=== PATIENT | female | born 1975 | race Hispanic/Latino ===

== ENCOUNTER 2017-12-01 14:58 | Emergency (ER) | payer BC ==
[~2017-12-01] VITALS: Ht 157.5 cm; Wt 86.6 kg
[~2017-12-01 14:58] MED LIST: NEXIUM20 MG PO
[2017-12-01] MEDS ORDERED: TRAMADOL HCL 50 MG TAB PO ONE (15:15)
--- NOTE | 2017-12-01 15:48 | Diagnostic Imaging Report ---
EXAM: KNEE RIGHT THREE VIEWS DATE: 12/01/2017 3:11 PM INDICATION: \S\r/o fx effusion etc \[id number] \[id number] COMPARISON: None FINDINGS: No fracture, subluxation, degenerative change, or significant joint effusion present. IMPRESSION: No acute osseous findings. Signed by: Dr. Federico Vargas MD on 12/01/2017 3:44 PM
== END 2017-12-01 16:22 | disposition home or self-care (01) ==
LOC: ER 14:58
DX: M25.561 Pain in right knee (principal); S83.91XA Sprain of unspecified site of right knee, initial encounter; R26.2 Difficulty in walking, not elsewhere classified; K21.9 Gastro-esophageal reflux disease without esophagitis
CPT/HCPCS: 99282

== ENCOUNTER → 2017-12-28 | Outpatient (CLI) | payer BC ==
--- NOTE | 2017-12-28 10:40 | Diagnostic Imaging Report ---
Right knee MRI without contrast. History: Knee pain. Decreased range of motion. Pain not responding to conservative management Comparison: Radiograph 12/01/2017. Technique: Multiplanar multi-sequence MRI of the knee without contrast. Findings: Medial compartment: No meniscal tear, cartilage abnormality, or MCL tear. Lateral compartment: No meniscal tear or cartilage abnormality. The LCL complex is normal. Intercondylar notch: The ACL and PCL are intact. Patellofemoral compartment: No chondromalacia or patellar dislocation. Extensor mechanism: The quadriceps and patellar tendons are normal. Other findings: There is a joint effusion and synovitis. There is no acute fracture, subluxation or avascular necrosis. Tiny Martinez's cyst IMPRESSION: No meniscal tear, collateral ligament tear or cruciate ligament tear. Small joint effusion and mild synovitis. Tiny Martinez's cyst. Signed by: Dr. Richard James M.D. on 12/28/2017 10:37 AM
== END ==
LOC: MRI 09:05
PROVIDERS: ATTEND Internal Medicine
DX: M25.561 Pain in right knee (principal)

== ENCOUNTER 2018-03-14 13:45 | Emergency (ER) | payer BC ==
[~2018-03-14] VITALS: Ht 157.5 cm; Wt 86.6 kg
== END 2018-03-14 14:00 | disposition home or self-care (01) ==
LOC: FSED 13:45
DX: M25.562 Pain in left knee (principal); I80.02 Phlebitis and thrombophlebitis of superficial vessels of left lower extremity
CPT/HCPCS: 99283

== ENCOUNTER 2018-09-29 11:17 | Emergency (ER) | payer BC ==
[~2018-09-29] VITALS: Ht 157.5 cm; Wt 86.6 kg
[2018-09-29] MEDS ORDERED: ONDANSETRON HCL 4 MG ORAL DISINTEGRATING TAB PO ONE (12:00)
[2018-09-29] MEDS ORDERED: SODIUM CHLORIDE 0.9% 1000 ML BAG IV ONE (12:00)
[2018-09-29] MEDS ORDERED: MORPHINE SULFATE 5 MG/ML VIAL IV STA (12:27)
[2018-09-29] MEDS ORDERED: IOPAMIDOL 300MG/ML 100 ML INFUS..BTL IV ONE (12:45)
--- NOTE | 2018-09-29 14:04 | Diagnostic Imaging Report ---
EXAM: CT Abdomen and Pelvis WITH contrast INDICATION: Upper abdominal pain radiating to the back. COMPARISON: None. TECHNIQUE: Abdomen and pelvis were scanned utilizing a multidetector helical scanner from the lung base to the pubic symphysis after administration of IV contrast. Coronal and sagittal reformations were obtained. Routine protocol was performed. Scan was performed when during portal venous phase. IV CONTRAST: 100 cc of Isovue-370. ORAL CONTRAST: None COMPLICATIONS: None RADIATION DOSE: Total DLP: 771 mGy*cm Dose modulation, iterative reconstruction, and/or weight based adjustment of the mA/kV was utilized to reduce the radiation dose to as low as reasonably achievable. FINDINGS: LINES and TUBES: None. LOWER THORAX: There is a 3 mm left lower lobe solid pulmonary nodule on series 2, image 7. Scattered coronary atherosclerosis. HEPATOBILIARY: No evidence of focal lesion. No biliary ductal dilation. GALLBLADDER: No radio-opaque stones or sludge. No wall thickening. SPLEEN: No splenomegaly. PANCREAS: No focal masses or ductal dilatation. ADRENALS: No adrenal nodules KIDNEYS/URETERS: Kidneys enhance symmetrically. No evidence of hydronephrosis, solid mass, or stone. GI TRACT: No evidence of wall thickening or distension. Appendix is normal. Small hiatal hernia. PELVIC ORGANS/BLADDER: The bladder is partially decompressed. The uterus and bilateral adnexa are unremarkable. LYMPH NODES: No lymphadenopathy. VESSELS: Unremarkable. PERITONEUM / RETROPERITONEUM: No free air or fluid. BONES AND SOFT TISSUES: Unremarkable. CONCLUSION: No acute CT findings in the abdomen or pelvis. Scattered coronary atherosclerosis. A 3 mm left lower lobe solid nodule, likely benign in a low risk patient. If there is a history of smoking or other risk factor for malignancy, an optional follow-up chest CT may be considered in 12 months. Small hiatal hernia. Signed by: Dr. Seble Ruby MD on 09/29/2018 2:00 PM
== END 2018-09-29 15:46 | disposition home or self-care (01) ==
LOC: FSED 11:17
DX: R10.11 Right upper quadrant pain (principal); R10.12 Left upper quadrant pain; R11.2 Nausea with vomiting, unspecified; R19.7 Diarrhea, unspecified; N30.91 Cystitis, unspecified with hematuria
CPT/HCPCS: 74177; 80053; 80076; 81003; 81025; 85025; 87086; 93005; 99284; J2270; J7030; Q0162; Q9967

== ENCOUNTER 2018-11-08 09:48 | Emergency (ER) | payer BC ==
[~2018-11-08] VITALS: Ht 157.5 cm; Wt 86.6 kg
--- NOTE | 2018-11-08 10:53 | Diagnostic Imaging Report ---
LEFT ANKLE - 3 Images HISTORY: Pain, "rolled" ankle COMPARISON: None available. FINDINGS: Bones: A small ossific fragment projects at the anterior and medial aspect of the tibiotalar joint, measuring up to 3 mm. No aggressive osseous lesion. Incidentally, a Nick deformity of the calcaneus and moderate plantar calcaneal enthesophyte. Joints: The ankle mortise is symmetric. Soft tissues: Nonspecific soft tissue swelling, most notably anterior and lateral. IMPRESSION: 1. Anterior and lateral nonspecific soft tissue swelling. 2. An age-indeterminate 3 mm avulsion fragment adjacent to the anteromedial aspect of the tibiotalar joint, correlate for focal point tenderness. Signed by: Dr. Gerardo Woody D.O., M.M.M. on 11/08/2018 10:50 AM
[2018-11-08] MEDS ORDERED: IBUPROFEN 600 MG TAB PO STA (12:34)
== END 2018-11-08 13:13 | disposition home or self-care (01) ==
LOC: ER 09:48
DX: M25.572 Pain in left ankle and joints of left foot (principal); S82.55XA Nondisplaced fracture of medial malleolus of left tibia, initial encounter for closed fracture; R26.2 Difficulty in walking, not elsewhere classified; M25.472 Effusion, left ankle; X50.1XXA Overexertion from prolonged static or awkward postures, initial encounter; Y92.008 Other place in unspecified non-institutional (private) residence as the place of occurrence of the external cause; K21.9 Gastro-esophageal reflux disease without esophagitis
CPT/HCPCS: 99284

== ENCOUNTER 2018-12-05 15:55 | Outpatient (RCR) | payer BC ==
[2019-02-21] MEDS ORDERED: MELOXICAM (08:53)
[2019-02-21] MEDS ORDERED: AMITIZA24 MCG PO (08:53)
[2019-02-21] MEDS ORDERED: TYLENOL WITH C1 EACH PO (08:54)
[2019-02-21] MEDS ORDERED: IBUPROFEN400 MG PO (08:54)
== END 2018-12-08 ==
LOC: PT 15:55
PROVIDERS: ATTEND Orthopaedic Surgery
DX: S93.492A Sprain of other ligament of left ankle, initial encounter (principal)

== ENCOUNTER → 2018-12-19 | Outpatient (CLI) | payer BC ==
[~2018-12-19] MED LIST changes: +AMITIZA24 MCG PO; +IBUPROFEN400 MG PO; +MELOXICAM; +PRILOSEC OTC20 MG PO; +REGADENOSON 0.4 MG/5 ML SYR IV ONE; +TYLENOL WITH C1 EACH PO
--- NOTE | 2018-12-20 11:47 | Myoview Stress Test ---
DATE OF STUDY: 12/19/2018 11:14:00 Stress Test - Treadmill ONLY INTERPRETING AND SUPERVISING PHYSICIAN: Channing Felix MD, Interventional Cardiology. INDICATION: Chest pain. PROCEDURE PERFORMED: Lexiscan stress test. INTERPRETATION: At rest heart rate was 68 and blood pressure 113/67. Resting EKG shows normal sinus rhythm and normal EKG. After Lexiscan was administered, heart rate deena to 120 beats per minute and blood pressure increased to 119/63. There were no significant ST changes or arrhythmias throughout stress or recovery. Myocardial perfusion reveals normal rest and stress perfusion. Gated images demonstrate preserved left ventricular systolic function, normal regional wall motion, and left ventricular ejection fraction of 62%. CONCLUSIONS: 1. Normal hemodynamic response to Lexiscan stress. 2. Normal electrocardiographic response to Lexiscan stress. 3. Normal myocardial perfusion at rest and post stress. 4. Preserved left ventricular systolic function, normal regional wall motion, and left ventricular ejection fraction of 62%. Channing Felix MD AFV/MODL /[id number]
== END ==
LOC: NM 11:04
PROVIDERS: ATTEND Internal Medicine Cardiovascular Disease
DX: I25.10 Atherosclerotic heart disease of native coronary artery without angina pectoris (principal)
CPT/HCPCS: 78452; 81025; 93017; A9502; J2785

== ENCOUNTER → 2019-01-01 | Outpatient (CLI) | payer BC ==
[~2019-01-01] MED LIST changes: -REGADENOSON 0.4 MG/5 ML SYR IV ONE
--- NOTE | 2019-01-01 09:42 | Diagnostic Imaging Report ---
Left knee MRI without contrast. History: Knee pain. Decreased range of motion. Fall. Pain worse with walking Comparison: None. Technique: Multiplanar multi-sequence MRI of the knee without contrast. Findings: Medial compartment: Degeneration and fraying of the medial meniscus. No meniscal tear, cartilage abnormality, or MCL tear. Lateral compartment: Obliquely oriented undersurface tear near the posterior root of the lateral meniscus. No cartilage abnormality. The LCL complex is normal. Intercondylar notch: The ACL and PCL are intact. Patellofemoral compartment: No chondromalacia or patellar dislocation. Extensor mechanism: The quadriceps and patellar tendons are normal. Other findings: There is a joint effusion and synovitis. There is no acute fracture, subluxation or avascular necrosis. Small Martinez's cyst. IMPRESSION: Obliquely oriented undersurface tear near the posterior root of the lateral meniscus. Small joint effusion, mild synovitis and small Martinez's cyst. Signed by: Dr. Richard James M.D. on 01/01/2019 9:38 AM
--- NOTE | 2019-01-01 09:44 | Diagnostic Imaging Report ---
Right knee MRI without contrast. History: Knee pain. Decreased range of motion. Fall. Pain worse with walking Comparison: None. Technique: Multiplanar multi-sequence MRI of the knee without contrast. Findings: Medial compartment: Midsubstance degeneration of the medial meniscus without tear. No cartilage abnormality, or MCL tear. Lateral compartment: No meniscal tear or cartilage abnormality. The LCL complex is normal. Intercondylar notch: The ACL and PCL are intact. Patellofemoral compartment: No chondromalacia or patellar dislocation. Extensor mechanism: The quadriceps and patellar tendons are normal. Other findings: There is a joint effusion and synovitis. There is no acute fracture, subluxation or avascular necrosis. IMPRESSION: Midsubstance degeneration of the medial meniscus without tear. Small joint effusion and mild synovitis. Signed by: Dr. Richard James M.D. on 01/01/2019 9:40 AM
== END ==
LOC: MRI 07:42
PROVIDERS: ATTEND Orthopaedic Surgery
DX: S83.282A Other tear of lateral meniscus, current injury, left knee, initial encounter (principal); S83.241A Other tear of medial meniscus, current injury, right knee, initial encounter

== ENCOUNTER 2019-01-02 15:00 | Outpatient (RCR) | payer BC ==
[~2019-01-02 15:00] MED LIST changes: -AMITIZA24 MCG PO; -IBUPROFEN400 MG PO; -MELOXICAM; -PRILOSEC OTC20 MG PO; -TYLENOL WITH C1 EACH PO
[2019-02-21] MEDS ORDERED: AMITIZA24 MCG PO (08:53)
[2019-02-21] MEDS ORDERED: MELOXICAM (08:53)
[2019-02-21] MEDS ORDERED: IBUPROFEN400 MG PO (08:54)
[2019-02-21] MEDS ORDERED: TYLENOL WITH C1 EACH PO (08:54)
== END 2019-01-08 ==
LOC: PT 15:00
PROVIDERS: ATTEND Orthopaedic Surgery
DX: S93.492A Sprain of other ligament of left ankle, initial encounter (principal)

== ENCOUNTER → 2019-01-15 | Outpatient (CLI) | payer BC ==
[~2019-01-15] MED LIST changes: +AMITIZA24 MCG PO; +IBUPROFEN400 MG PO; +MELOXICAM; +PRILOSEC OTC20 MG PO; +TYLENOL WITH C1 EACH PO
--- NOTE | 2019-01-15 10:17 | Diagnostic Imaging Report ---
TECHNIQUE: Magnetic resonance imaging of the LEFT ANKLE was performed WITHOUT injected contrast. COMPARISON: None available. HISTORY: Ankle sprain FINDINGS: LIGAMENTS: Medial Complex: Deltoid ligament intact with adjacent edema. Lateral Complex: Inferior tibiofibular ligaments intact. Partial tearing of the anterior talofibular and calcaneofibular ligaments with granulation tissue formation.. TENDONS: Medial: Posterior tibial and extensor tendons intact. Lateral: Peroneal tendons intact with mild tenosynovitis. Anterior: Anterior tibial tendons intact Achilles: Achilles tendon intact BONES: Osseous contusion to the medial malleolus and talus. No acute fracture or osteonecrosis. JOINTS: Cartilage: No focal defect is identified involving the tibiotalar joint. Other: Fluid within the joints is within physiologic limits. SOFT TISSUES: Plantar fascial thickening with surrounding edema. IMPRESSION: Subacute ankle inversion injury with partial tearing of the lateral ankle ligaments and contusion of the medial malleolus and talus. Reactive tenosynovitis of the peroneal tendons. Plantar fasciitis. Signed by: Dr. Ajith Edwards M.D. on 01/15/2019 10:14 AM
== END ==
LOC: MRI 07:35
PROVIDERS: ATTEND Orthopaedic Surgery
DX: S93.492A Sprain of other ligament of left ankle, initial encounter (principal)

== ENCOUNTER → 2019-02-24 | Day surgery (SDC) | payer BC ==
[~2019-02-24] MED LIST changes: +ACETAMINOPHEN 1000 MG/100 ML IV ONE; +BUPIVACAINE 0.25% 30ML SDV INJ ONE; +CEFAZOLIN SOD 1 GM/NS 50ML 100 ML IV ONE; +DEXAMETHASONE SOD PHOS INJ 4 MG/ML VIAL ONE; +FENTANYL CITRATE/PF 100MCG/2 ML INJ ONE; +HYDROCODONE/APAP 5MG-325MG TAB ONE; +HYDROMORPHONE 1MG/1ML INJ ONE; +LIDOCAINE 1% W/EPINEPHRINE 20 ML VIAL ONE; +LIDOCAINE HCL 2% LOCAL INJ 5 ML SDV VIAL INJ ONE; +MEPERIDINE HCL INJ 25 MG/ML VIAL ONE; +MIDAZOLAM HCL 2 MG/2 ML VIAL ONE; +ONDANSETRON HCL INJ 2MG/ML 2ML 2 MG/ML VIAL ONE; +PROPOFOL IV EMULSION 10 MG/ML 20 ML VIAL ONE; +SEVOFLURANE INHAL SOLN 250 ML PEN BTL ONE
[2019-02-24 10:15] VITALS: BP 113/70
--- NOTE | 2019-02-24 22:47 | NUR ---
PREOPERATIVE DIAGNOSES: Left Knee Lateral Meniscal Root Tear POSTOPERATIVE DIAGNOSES: Left Knee Lateral Meniscal Root Tear, Medial Plica Syndrome PROCEDURE: Left Knee Arthroscopic Lateral Mensical Root Repair, Excision of Medial Plica, Application of Fibrin Clot SURGEON: Ayesha Méndez DO MACHINE TOOL BUILDER: Israel Dumont ANESTHESIA: General COMPLICATIONS: None TOURNIQUET: Applied but not inflated. No tourniquet EBL: Minimal INDICATIONS: Due to persistent pain and limitations on activity combined with findings on exam and imaging, the patient requests surgical treatment. Nonopera tive care and alternative surgical options were reviewed. We agreed that this provided the best risk/benefit profile for this patient, understanding and accepting risks of recurrent/persistent symptoms, infection, bleeding, stiffness, neurological/vascular damage, failure to improve and anesthetic complication (as reviewed by anesthesia service). Also, the patient understands that arthroscopic treatment of articular cartilage lesions provides temporary incomplete relief but that meniscal symptoms should be well addressed. FINDINGS: LEFT Knee 1.Patella Normal 2.Trochlea - Shallow Trochlea 3.Lateral Gutter Normal 4.Medial Gutter Normal 5.Medial Compartment a.Femoral - Normal b.Tibial - Normal c.Medial Meniscus - Normal 6.Cruciate region - Normal 7.Lateral Compartment a.Femoral - Normal b.Tibial - Grade 2 c.Lateral Meniscus - Unstable posterior horn root tear 8.Synovium - Hypertrophic Impinging Plica PROCEDURE: With the patient in the supine position with all prominences well padded, general anesthesia was obtained. Sterile prepping and draping were performed. Antibiotics had been given and a time out performed. After an injection of 1% Lidocaine with Epinephrine in the proposed incision sites, The arthroscope was i nserted via a small lateral parapatellar tendon incision into the patellofemoral space. Under direct visualization, a medial parapatellar tendon portal was created providing a working portal. Diagnostic arthroscopy was performed and the above findings were noted. Within the patellofemoral space, the chondral surfaces were normal, however there was a large synovial fold with an impinging plica. Within the medial compartment, the medial meniscus was found to be normal along with the chondral surfaces. Within the intercondylar space, the ACL was visualized and intact The lateral compartment demonstrated an unstable lateral meniscus root tear with normal chondral surfaces. This was debrided with an arthroscopic shaver to a stable border and a .45 drill was passed from the anteriomedial tibial cortex to the lateral meniscal root. Two 0 Novostitch sutures were passed through the [employer] device and passed in luggage tags. The sutures were then passed down the hole and tied anteriorly with a [employer] Endob[employer]. A fibrin clot was then injected into the lateral compartment to improve the biologic environment to aid in healing. The joint was extravasated and .25% marcaine was injected into the knee. The incisions were closed and more local was injected around the portal sites. Steristrips, Xeroform, 4x4s, ABDs and a compressive RODRIGUEZ bandage and brace was applied. The patient was awakened and transferred to the PACU in satisfactory condition having tolerated the procedure well.
== END | disposition home or self-care (01) ==
LOC: OR 05:00
PROVIDERS: ATTEND Orthopaedic Surgery
DX: S83.272A Complex tear of lateral meniscus, current injury, left knee, initial encounter (principal); M67.52 Plica syndrome, left knee; R05 Cough; K21.9 Gastro-esophageal reflux disease without esophagitis; K28.9 Gastrojejunal ulcer, unspecified as acute or chronic, without hemorrhage or perforation; K44.9 Diaphragmatic hernia without obstruction or gangrene; X58.XXXA Exposure to other specified factors, initial encounter; Z88.8 Allergy status to other drugs, medicaments and biological substances; Z01.812 Encounter for preprocedural laboratory examination
CPT/HCPCS: 29882; 29999; 81025; J0131; J0690; J1100; J1170; J2001; J2175; J2250; J2405; J2704; J3010

== ENCOUNTER 2019-03-05 17:50 | Emergency (ER) | payer BC ==
[~2019-03-05] VITALS: Ht 157.5 cm; Wt 90.7 kg
[~2019-03-05 17:50] MED LIST changes: -ACETAMINOPHEN 1000 MG/100 ML IV ONE; -BUPIVACAINE 0.25% 30ML SDV INJ ONE; -CEFAZOLIN SOD 1 GM/NS 50ML 100 ML IV ONE; -DEXAMETHASONE SOD PHOS INJ 4 MG/ML VIAL ONE; -FENTANYL CITRATE/PF 100MCG/2 ML INJ ONE; -HYDROCODONE/APAP 5MG-325MG TAB ONE; -HYDROMORPHONE 1MG/1ML INJ ONE; -LIDOCAINE 1% W/EPINEPHRINE 20 ML VIAL ONE; -LIDOCAINE HCL 2% LOCAL INJ 5 ML SDV VIAL INJ ONE; -MEPERIDINE HCL INJ 25 MG/ML VIAL ONE; -MIDAZOLAM HCL 2 MG/2 ML VIAL ONE; -ONDANSETRON HCL INJ 2MG/ML 2ML 2 MG/ML VIAL ONE; -PRILOSEC OTC20 MG PO; -PROPOFOL IV EMULSION 10 MG/ML 20 ML VIAL ONE; -SEVOFLURANE INHAL SOLN 250 ML PEN BTL ONE
[2019-03-05] MEDS ORDERED: SODIUM CHLORIDE 0.9% 1000ML 1,000 ML IV SCH (18:15)
[2019-03-05] MEDS ORDERED: IOPAMIDOL 370 MG/ML 200 ML INFUS..BTL INJ ONE (18:48)
[2019-03-05] MEDS ORDERED: SODIUM CHLORIDE 0.9% 50ML 50 ML ONE (18:48)
[2019-03-05] MEDS ORDERED: SODIUM CHLORIDE 0.9% 1000ML 1,000 ML ONE (18:52)
--- NOTE | 2019-03-05 19:15 | NUR ---
REPORT TO ARIANNA SHANE
--- NOTE | 2019-03-05 19:42 | Diagnostic Imaging Report ---
CT CHEST WITH CONTRAST (PE protocol) HISTORY: Chest pain, postop COMPARISON: None TECHNIQUE: CT scan of the chest WITH intravenous contrast, using standard protocol. Coronal and sagittal reformats are provided. PE protocol. IV CONTRAST: 100 cc of Isovue-370. RADIATION DOSE: Total DLP: 484.65 mGy*cm Dose modulation, iterative reconstruction, and/or weight based adjustment of the mA/kV was utilized to reduce the radiation dose to as low as reasonably achievable. COMPLICATIONS: None FINDINGS: Lines/tubes: None. Lungs and Airways: Low lung volumes result in bibasilar vascular crowding, accentuation of the pulmonary interstitial markings, central pulmonary vasculature, and the cardiac silhouette. Allowing for these limitations, the findings are as follows: Small area of left lower lobe air trapping. No consolidative pneumonia. Pleura: No effusion or pneumothorax. Heart and mediastinum: The thyroid gland is normal. The heart and pericardium are within normal limits. Small sliding hiatal hernia. Abdomen: Limited evaluation of the upper abdomen. The gallbladder is contracted. Lymph nodes: No pathologically enlarged lymph node identified. Vessels: Dense contrast within the left brachiocephalic vein, superior vena cava, and right heart results in beam hardening artifact which partially limits regional evaluation. No filling defect identified within the central pulmonary arteries. Bones: No acute osseous lesion is identified. Soft tissues: Unremarkable IMPRESSION: 1. Small area of air trapping the left lower lobe of the lung. 2. Small sliding hiatal hernia. 3. No evidence of a pulmonary embolus to the segmental level. Signed by: Dr. Gerardo Woody D.O., M.M.M. on 03/05/2019 7:38 PM
[2019-03-05] MEDS ORDERED: PRILOSEC OTC20 MG PO (19:58)
== END 2019-03-05 20:20 | disposition home or self-care (01) ==
LOC: FSED 17:50
DX: R07.89 Other chest pain (principal); K21.9 Gastro-esophageal reflux disease without esophagitis
CPT/HCPCS: 71260; 80053; 81025; 85025; 85379; 93005; 99283; J7030; Q9967

== ENCOUNTER → 2019-03-10 | Outpatient (RCR) | payer BC ==
[~2019-03-10] MED LIST changes: +PRILOSEC OTC20 MG PO
== END ==
LOC: PT 03-05 09:49
PROVIDERS: ATTEND Orthopaedic Surgery
DX: S83.272A Complex tear of lateral meniscus, current injury, left knee, initial encounter (principal); M71.22 Synovial cyst of popliteal space [Baker], left knee
CPT/HCPCS: 97010 ×2; 97110 ×3; 97161; G0283 ×2

== ENCOUNTER → 2019-04-10 | Outpatient (RCR) | payer BC | LOC: PT 03-12 10:07 | PROVIDERS: ATTEND Orthopaedic Surgery | DX: S83.272A Complex tear of lateral meniscus, current injury, left knee, initial encounter (principal); M71.22 Synovial cyst of popliteal space [Baker], left knee; M25.562 Pain in left knee; R26.9 Unspecified abnormalities of gait and mobility | CPT/HCPCS: 97010; 97110 ×11; 97112 ×5; 97116; G0283 ×4 ==

== ENCOUNTER 2019-04-25 09:50 | Outpatient (RCR) | payer BC | END 2019-05-10 | LOC: PT 09:50 | PROVIDERS: ATTEND Orthopaedic Surgery | DX: S83.272A Complex tear of lateral meniscus, current injury, left knee, initial encounter (principal); M71.22 Synovial cyst of popliteal space [Baker], left knee ==

== ENCOUNTER 2019-07-18 10:00 | Outpatient (RCR) | payer BC ==
[~2019-07-18 10:00] MED LIST changes: +BUPIVACAINE 0.5%/EPI 30 ML SDV INJ ONE; +IOPAMIDOL 300MG/ML 50ML INFUS..BTL IV ONE
== END 2019-08-09 ==
LOC: PT 10:00
PROVIDERS: ATTEND Orthopaedic Surgery
DX: S83.272D Complex tear of lateral meniscus, current injury, left knee, subsequent encounter (principal); M71.22 Synovial cyst of popliteal space [Baker], left knee; M25.562 Pain in left knee; R26.9 Unspecified abnormalities of gait and mobility
CPT/HCPCS: 97010; 97110 ×2; Q9967

== ENCOUNTER → 2019-12-26 | Outpatient (CLI) | payer BC ==
[~2019-12-26] MED LIST changes: -BUPIVACAINE 0.5%/EPI 30 ML SDV INJ ONE; -IOPAMIDOL 300MG/ML 50ML INFUS..BTL IV ONE; +LACTATED RINGER'S 1,000 ML ONE
--- NOTE | 2019-12-26 12:27 | Diagnostic Imaging Report ---
MRI SPINE LUMBAR WO HISTORY: Lumbago COMPARISON: CT of the abdomen and pelvis 09/29/2018; report from lumbar spine MRI 05/16/2016 TECHNIQUE: Sagittal T1, sagittal T2, sagittal STIR, axial T2, coronal T2, and axial proton density weighted images of the lumbar spine were obtained without contrast. DISCUSSION: Number of non-rib bearing lumbar vertebral bodies: 5. Alignment: Normal lordosis. No scoliosis. Vertebrae: No fractures, infection or neoplasm. Conus medullaris: Normal, ends at L1-L2. Cauda equina: No masses or arachnoiditis. Posterior paraspinal muscles: Well preserved. No signal abnormalities. Soft tissues: No signal abnormalities. Mild multilevel lumbar disc degeneration is present. There is a posterior annular fissure at L5-S1. T12-L1: Patent canal and foramina. L1-L2: Patent canal and foramina. L2-L3: Patent canal and foramina. L3-L4: Disc bulge without significant canal or foraminal stenosis. L4-L5: Mild left foraminal stenosis due to disc bulge and facet arthrosis. No significant canal or right foraminal stenosis. L5-S1: Mild bilateral foraminal stenoses due to disc bulge and facet arthrosis. No significant canal cirrhosis. IMPRESSION: 1. Mild multilevel lumbar disc degeneration without significant canal stenosis. 2. Mild left L4-L5 and bilateral L5-S1 degenerative foraminal stenoses. 3. Posterior annular fissure at L5-S1. Signed by: Dr. Eran Meier M.D. on 12/26/2019 12:24 PM
== END ==
LOC: MRI 09:42
PROVIDERS: ATTEND Orthopaedic Surgery
DX: M54.42 Lumbago with sciatica, left side (principal)
CPT/HCPCS: 72148; 81025; J7121; U0002

== ENCOUNTER → 2020-03-10 | Outpatient (RCR) | payer BC ==
[~2020-03-10] MED LIST changes: -LACTATED RINGER'S 1,000 ML ONE
== END ==
LOC: PT 03-02 15:44
PROVIDERS: ATTEND Orthopaedic Surgery
DX: M54.42 Lumbago with sciatica, left side (principal); M48.062 Spinal stenosis, lumbar region with neurogenic claudication; M62.81 Muscle weakness (generalized); R26.2 Difficulty in walking, not elsewhere classified; M53.86 Other specified dorsopathies, lumbar region
CPT/HCPCS: 97110 ×3; 97162; G0283

== ENCOUNTER 2020-03-30 07:00 | Outpatient (RCR) | payer BC ==
[~2020-03-30 07:00] MED LIST changes: +HYDROMORPHONE 2MG/ML 2 MG/ML ML ONE
== END 2020-04-10 ==
LOC: PT 07:00
PROVIDERS: ATTEND Orthopaedic Surgery
DX: M54.42 Lumbago with sciatica, left side (principal); M48.062 Spinal stenosis, lumbar region with neurogenic claudication; M53.86 Other specified dorsopathies, lumbar region; M62.81 Muscle weakness (generalized); R26.2 Difficulty in walking, not elsewhere classified
CPT/HCPCS: 97032; 97110 ×6; 97139; 97140; G0283 ×3

== ENCOUNTER → 2020-09-09 | Outpatient (CLI) | payer OTHER ==
[~2020-09-09] MED LIST changes: -HYDROMORPHONE 2MG/ML 2 MG/ML ML ONE
[2020-09-09 08:58] LABS: ALANINE AMINOTRANSFERASE 13 IU/L (0-55); ALBUMIN 3.9 g/dL (3.5-5.0); ALKALINE PHOSPHATASE 99 IU/L (40-150); ANION GAP 11.6 mmol/L (8-16); BLOOD UREA NITROGEN 12 mg/dL (7-26); BUN/CREATININE RATIO 17 (6-25); CALCIUM 9.1 mg/dL (8.4-10.2); CARBON DIOXIDE 28 mmol/L (22-29); CHLORIDE 105 mmol/L (98-107); CREATININE, SERUM 0.72 mg/dL (0.57-1.11); EST GLOMERULAR FILTRATION RATE > 60 ML/MIN (60-); GLUCOSE 79 mg/dL (74-118); POTASSIUM 3.6 mmol/L (3.5-5.1); SODIUM 141 mmol/L (136-145)
[2020-09-09 09:20] LABS: FREE THYROXINE INDEX 3.2513 (1.4-3.8); THYROID STIMULATING HORMONE 0.011 uIU/mL (0.350-4.940)
== END ==
LOC: LAB 08:25
PROVIDERS: ATTEND Internal Medicine
DX: R53.83 Other fatigue (principal); E03.9 Hypothyroidism, unspecified
CPT/HCPCS: 36415; 80053; 84436; 84443; 84479

== ENCOUNTER 2021-07-12 16:44 | Emergency (ER) | payer BC, OTHER ==
[~2021-07-12] VITALS: Ht 157.5 cm; Wt 89.4 kg
[2021-07-12] MEDS ORDERED: KETOROLAC TROMETHAMINE 30 MG/ML VIAL IV STA (17:03)
[2021-07-12] MEDS ORDERED: SODIUM CHLORIDE 0.9% 1000ML 1,000 ML IV ONE (17:15)
[2021-07-12] MEDS ORDERED: KETOROLAC TROMETHAMINE 30 MG/ML VIAL ONE (17:16)
[2021-07-12] MEDS ORDERED: SODIUM CHLORIDE 0.9% 1000ML 1,000 ML ONE (17:16)
[2021-07-12] MEDS ORDERED: ONDANSETRON ODT4 MG PO (17:58)
== END 2021-07-12 18:00 | disposition home or self-care (01) ==
LOC: FSED 17:03
DX: U07.1 COVID-19 (principal); R05.9 Cough, unspecified; E86.0 Dehydration; E86.1 Hypovolemia; K21.9 Gastro-esophageal reflux disease without esophagitis
CPT/HCPCS: 80053; 85025; 96374; 96375; 99283; J1885; J7030

== ENCOUNTER 2021-07-15 14:28 | Emergency (ER) | payer BC ==
[~2021-07-15] VITALS: Ht 157.5 cm; Wt 90.8 kg
[~2021-07-15 14:28] MED LIST changes: +ONDANSETRON ODT4 MG PO
[2021-07-15] MEDS ORDERED: LEVOTHYROXINE100 MC2 (14:51)
[2021-07-15] MEDS ORDERED: KETOROLAC TROMETHAMINE 30 MG/ML VIAL IV STA (16:05)
== END 2021-07-15 17:05 | disposition home or self-care (01) ==
LOC: FSED 15:15
DX: R07.9 Chest pain, unspecified (principal); E03.9 Hypothyroidism, unspecified; K21.9 Gastro-esophageal reflux disease without esophagitis
CPT/HCPCS: 71046; 80053; 81003; 82553; 83880; 84484; 85025; 85379; 93971; 96374; 99284; J1885; 93005

== ENCOUNTER → 2022-03-09 | Outpatient (CLI) | payer BC ==
[~2022-03-09] MED LIST changes: +LEVOTHYROXINE100 MC2
== END ==
LOC: MRI 12:26
PROVIDERS: ATTEND Orthopaedic Surgery
DX: M76.01 Gluteal tendinitis, right hip (principal); S83.231A Complex tear of medial meniscus, current injury, right knee, initial encounter
CPT/HCPCS: 81025

== ENCOUNTER 2022-07-06 13:50 | Outpatient (RCR) | payer BC | END 2022-07-11 | LOC: PT 13:50 | PROVIDERS: ATTEND Orthopaedic Surgery | DX: M76.01 Gluteal tendinitis, right hip (principal); S83.231D Complex tear of medial meniscus, current injury, right knee, subsequent encounter; M25.551 Pain in right hip; M25.661 Stiffness of right knee, not elsewhere classified; M62.81 Muscle weakness (generalized) ==

== ENCOUNTER → 2022-10-12 | Day surgery (SDC) | payer BC ==
[~2022-10-12] MED LIST changes: +LACTATED RINGER'S 1,000 ML ONE; +LIDOCAINE HCL 2% LOCAL INJ 5 ML SDV VIAL INJ ONE; +METOCLOPRAMIDE HCL 10 MG/2ML VIAL ONE; +POVIDONE IODINE 0.05% 0.05 % ML PO ONE; +PROPOFOL IV EMULSION 10 MG/ML 20 ML VIAL ONE
[2022-10-12 12:50] VITALS: BP 100/65
== END | disposition home or self-care (01) ==
LOC: OR 11:10
PROVIDERS: ATTEND Internal Medicine Gastroenterology
DX: K29.50 Unspecified chronic gastritis without bleeding (principal); K21.00 Gastro-esophageal reflux disease with esophagitis, without bleeding; K44.9 Diaphragmatic hernia without obstruction or gangrene; Z79.899 Other long term (current) drug therapy
CPT/HCPCS: 43239; 81025; C9113; J2001; J2704; J2765; J7121

== ENCOUNTER → 2023-10-23 | Outpatient (REF) | payer BC ==
[~2023-10-23] MED LIST changes: -LACTATED RINGER'S 1,000 ML ONE; -LIDOCAINE HCL 2% LOCAL INJ 5 ML SDV VIAL INJ ONE; -METOCLOPRAMIDE HCL 10 MG/2ML VIAL ONE; -POVIDONE IODINE 0.05% 0.05 % ML PO ONE; -PROPOFOL IV EMULSION 10 MG/ML 20 ML VIAL ONE
== END ==
LOC: MRI 08:36
PROVIDERS: ATTEND Podiatrist Foot & Ankle Surgery
DX: M72.2 Plantar fascial fibromatosis (principal)

== ENCOUNTER 2024-01-02 10:00 | Outpatient (RCR) | payer BC | END 2024-01-09 | LOC: PT 10:00 | PROVIDERS: ATTEND Podiatrist Foot & Ankle Surgery | DX: Z47.89 Encounter for other orthopedic aftercare (principal); M62.81 Muscle weakness (generalized); M25.471 Effusion, right ankle; M25.671 Stiffness of right ankle, not elsewhere classified ==

== ENCOUNTER 2024-02-08 09:00 | Outpatient (RCR) | payer BC | END 2024-02-09 | LOC: PT 09:00 | PROVIDERS: ATTEND Podiatrist Foot & Ankle Surgery | DX: Z47.89 Encounter for other orthopedic aftercare (principal); M62.81 Muscle weakness (generalized); M25.471 Effusion, right ankle; M25.671 Stiffness of right ankle, not elsewhere classified ==